=== PATIENT | male | born 1940 | race Caucasian/White ===

== ENCOUNTER 2017-12-12 08:22 | Emergency (ER) | payer OTHER ==
[~2017-12-12 08:22] MED LIST: AUD IH; FLUT1DIS5 IH; PRED20TA3 PO; TIOT18CA3 IH
[2017-12-12 09:02] LABS: BASOPHILS % (AUTO) 0.6 % (0.0-5.0); EOSINOPHILS % (AUTO) 2.8 % (0.0-8.0); HEMATOCRIT 38.1 % (42-54); LYMPHOCYTES % (AUTO) 16.9 % (21.0-51.0); MEAN CORPUSCULAR HEMOGLOBIN 31.4 pg (27.0-33.0); MEAN CORPUSCULAR VOLUME 92.3 fL (79-99); NEUTROPHILS % (AUTO) 71.7 % (40.0-77.0); PLATELET COUNT (AUTO) 262 K/uL (130-400); RED BLOOD CELL COUNT(AUTO) 4.12 MIL/uL (4.50-6.20); RED CELL DISTRIBUTION WIDTH 14.2 % (11.0-15.5); WHITE BLOOD COUNT (AUTO) 7.1 K/uL (4.8-10.8)
[2017-12-12 09:11] LABS: APPEARANCE,URINE Clear (CLEAR); BILIRUBIN,URINE Negative (NEGATIVE); COLOR,URINE Yellow (YELLOW); GLUCOSE, URINE (UA) Negative (NEGATIVE); KETONES,URINE Negative (NEGATIVE); LEUKOCYTE ESTERASE ,URINE Negative (NEGATIVE); NITRATE,URINE Negative (NEGATIVE); OCCULT BLOOD,URINE Negative (NEGATIVE); PH,URINE 5.5 (5.0-8.0); PROTEIN,URINE Negative (NEGATIVE); UROBILINOGEN,URINE 0.2 mg/dL (0.2-1.0)
[2017-12-12 09:24] LABS: POTASSIUM 4.8 mmol/L (3.5-5.1)
== END 2017-12-12 09:50 | disposition home or self-care (01) ==
LOC: EDH 08:22
DX: R33.9 Retention of urine, unspecified (principal); J44.9 Chronic obstructive pulmonary disease, unspecified; Z88.8 Allergy status to other drugs, medicaments and biological substances
CPT/HCPCS: 36415; 51702; 80048; 81003; 85025

== ENCOUNTER → 2018-01-25 | Outpatient (CLI) | payer OTHER | END | disposition home or self-care (01) | LOC: RAH 10:16 | PROVIDERS: ATTEND Internal Medicine | DX: J44.9 Chronic obstructive pulmonary disease, unspecified (principal); M47.895 Other spondylosis, thoracolumbar region | CPT/HCPCS: 71046 ==

== ENCOUNTER 2018-07-10 08:30 | Day surgery (SDC) | payer OTHER ==
[2018-07-10] VITALS (17 sets, daily range): BP systolic 85–108; BP diastolic 58–70
[~2018-07-10] VITALS: Ht 180.3 cm; Wt 78.0 kg
[~2018-07-10 08:30] MED LIST changes: +ASPI-555 PO; +CELE-84 PO; +LOSA25TA16 PO; +MOME13HF IH; +ROSU10TA27 PO; +SODIUM CHLORIDE 0.9% 1000ML 1,000 ML IV ONE; +TAMS0.4C32 PO
[2018-07-10] MEDS ORDERED: MEPERIDINE-PF 50 MG/ML SYG ONE (10:48)
[2018-07-10] MEDS ORDERED: MIDAZOLAM HCL 1 MG/ML 2ML VIAL ONE (10:49)
== END 2018-07-10 12:48 | disposition home or self-care (01) ==
LOC: ENDO 08:30 → DAH 08:30 → ENDO 12:48
PROVIDERS: ATTEND Internal Medicine Gastroenterology
DX: K63.5 Polyp of colon (principal); K57.30 Diverticulosis of large intestine without perforation or abscess without bleeding; K62.1 Rectal polyp; J44.9 Chronic obstructive pulmonary disease, unspecified; Z98.890 Other specified postprocedural states; Z79.899 Other long term (current) drug therapy; Z98.49 Cataract extraction status, unspecified eye; Z88.8 Allergy status to other drugs, medicaments and biological substances
CPT/HCPCS: 45380; 45385; 88305; A4606; J2175; J2250; J7030

== ENCOUNTER → 2021-04-14 | Outpatient (CLI) | payer OTHER ==
[~2021-04-14] MED LIST changes: -ASPI-555 PO; +ASPI-556 PO; -FLUT1DIS5 IH; -LOSA25TA16 PO; +LOSA25TA41 PO; -ROSU10TA27 PO; +ROSU10TA28 PO; -SODIUM CHLORIDE 0.9% 1000ML 1,000 ML IV ONE
== END | disposition home or self-care (01) ==
LOC: SHCH 09:25
PROVIDERS: ATTEND Internal Medicine Cardiovascular Disease
DX: I27.20 Pulmonary hypertension, unspecified (principal); J44.9 Chronic obstructive pulmonary disease, unspecified
CPT/HCPCS: 93306; 93356

== ENCOUNTER → 2021-12-31 | Outpatient (CLI) | payer OTHER ==
[~2021-12-31] MED LIST changes: +REGADENOSON 0.4 MG/5 ML PF SYG IVP SCH
== END | disposition home or self-care (01) ==
LOC: SHCH 08:16
PROVIDERS: ATTEND Internal Medicine Cardiovascular Disease
DX: I10 Essential (primary) hypertension (principal); R07.9 Chest pain, unspecified
CPT/HCPCS: 78452; 93017; 96374; A9500 ×2; J2785

== ENCOUNTER 2022-07-31 02:36 | Observation (INO) | payer OTHER ==
[~2022-07-31] VITALS: Ht 185.4 cm; Wt 52.7 kg
[~2022-07-31 02:36] MED LIST changes: -MOME13HF IH; +MOME13HF11 IH; -REGADENOSON 0.4 MG/5 ML PF SYG IVP SCH
[2022-07-31 03:44] LABS: BASOPHILS % (AUTO) 0.2 % (0.0-5.0); EOSINOPHILS % (AUTO) 0.1 % (0.0-8.0); LYMPHOCYTES % (AUTO) 4.5 % (21.0-51.0); MEAN CORPUSCULAR HEMOGLOBIN 30.5 pg (27.0-33.0); MEAN CORPUSCULAR HGB CONC 32.4 g/dL (32.0-36.0); MEAN CORPUSCULAR VOLUME 93.9 fL (79-99); MONOCYTES % (AUTO) 6.3 % (3.0-13.0); NEUTROPHILS % (AUTO) 88.5 % (40.0-77.0); PLATELET COUNT (AUTO) 193 K/uL (130-400); RED BLOOD CELL COUNT(AUTO) 3.94 MIL/uL (4.50-6.20); WHITE BLOOD COUNT (AUTO) 13.3 K/uL (4.8-10.8)
[2022-07-31 03:50] LABS: CREATININE 1.1 mg/dL (0.5-1.5); POTASSIUM 4.4 mmol/L (3.5-5.1)
[2022-07-31 03:55] LABS: ALBUMIN 2.5 g/dL (3.5-5.0); TOTAL PROTEIN, SERUM 7.2 g/dL (6.0-8.3)
[2022-07-31] MEDS ORDERED: AZITHROMYCIN 250 MG TABLET PO ONE (05:00)
[2022-07-31] MEDS ORDERED: CEFTRIAXONE 1G VIAL IVP ONE (05:00)
[2022-07-31] MEDS ORDERED: SOLU-MEDROL 125MG VIAL IVP ONE (05:00)
[2022-07-31 05:19] LABS: APPEARANCE,URINE CLEAR (CLEAR); BILIRUBIN,URINE NEGATIVE (NEGATIVE); COLOR,URINE YELLOW (YELLOW); GLUCOSE, URINE (UA) NEGATIVE (NEGATIVE); KETONES,URINE NEGATIVE (NEGATIVE); LEUKOCYTE ESTERASE ,URINE NEGATIVE Leu/uL (NEGATIVE); NITRATE,URINE NEGATIVE (NEGATIVE); OCCULT BLOOD,URINE NEGATIVE (NEGATIVE); PH,URINE 5.5 (5.0-8.0); PROTEIN,URINE 20 mg/dL (NEGATIVE); UROBILINOGEN,URINE 0.2 mg/dL (0.2-1.0)
[2022-07-31] MEDS ORDERED: TEMAZEPAM 15 MG CAPSULE PO PRN (05:30)
[2022-07-31] MEDS ORDERED: ALBUTEROL INHALER 90MCG/INH IH PRN ×2 (05:30→08:30)
[2022-07-31] MEDS ORDERED: LACTULOSE 20 GM/30 ML UDCUP PO PRN (05:30)
[2022-07-31] MEDS ORDERED: ACETAMINOPHEN 325 MG TAB PO PRN (05:30)
[2022-07-31] MEDS ORDERED: ONDANSETRON 4MG INJ IVP PRN (05:30)
[2022-07-31] MEDS ORDERED: CLONIDINE HCL 0.1 MG TABLET PO PRN (05:30)
[2022-07-31] MEDS ORDERED: HYDRALAZINE 20MG/ML VIAL IV PRN (05:30)
[2022-07-31 05:38] LABS: ABG BASE EXCESS -1.2 mmol/L (-2.0-3.0); ABG HCO3 22.7 mmol/L (21.0-28.0); ABG OXYGEN SATURATION 97.8 % (95.0-99.0); ABG PCO2 36 mmHg (35-48)
[2022-07-31] MEDS ORDERED: SOLU-MEDROL 125MG VIAL IVP SCH ×3 (08:30→11:45)
[2022-07-31] MEDS: PANTOPRAZOLE 40 MG TAB DR PO SCH (09:11)
[2022-07-31] MEDS: ENOXAPARIN SODIUM 40 MG/0.4 ML SYRINGE SQ SCH (09:14)
[2022-07-31] MEDS: SODIUM CHLORIDE 3% FOR INHALATION 4 ML/AMP VIAL.NEB IH SCH ×2 (10:04→21:00)
[2022-07-31] MEDS: IPRATROPIUM 0.5 MG/2.5 ML INH IH SCH ×4 (10:04→22:27)
[2022-07-31] MEDS ORDERED: ADV500 IH (16:30)
[2022-07-31 17:20] VITALS: BP 90/67
[2022-07-31 20:39] VITALS: BP 105/65
[2022-07-31] MEDS: SOLU-MEDROL 125MG VIAL IVP SCH (21:17)
[2022-07-31 23:25] VITALS: BP 103/60
[2022-08-01] MEDS: IPRATROPIUM 0.5 MG/2.5 ML INH IH SCH ×6 (02:19→22:40)
[2022-08-01] MEDS: SOLU-MEDROL 125MG VIAL IVP SCH ×2 (04:03→11:49)
[2022-08-01 04:33] VITALS: BP 109/69
[2022-08-01 05:23] LABS: HEMATOCRIT 33.8 % (42-54); MEAN CORPUSCULAR HEMOGLOBIN 30.9 pg (27.0-33.0); MEAN CORPUSCULAR HGB CONC 33.1 g/dL (32.0-36.0); MEAN CORPUSCULAR VOLUME 93.4 fL (79-99); RED BLOOD CELL COUNT(AUTO) 3.62 MIL/uL (4.50-6.20); RED CELL DISTRIBUTION WIDTH 13.5 % (11.0-15.5); WHITE BLOOD COUNT (AUTO) 7.7 K/uL (4.8-10.8)
[2022-08-01 05:33] LABS: CREATININE 0.9 mg/dL (0.5-1.5); MAGNESIUM 2.1 mg/dL (1.80-2.40); PHOSPHORUS 3.5 mg/dL (2.5-4.9); POTASSIUM 4.5 mmol/L (3.5-5.1)
[2022-08-01 06:03] LABS: % IRON SATURATION 30.1 % (30-44)
[2022-08-01 07:32] VITALS: BP 102/64
[2022-08-01] MEDS ORDERED: 0.9% NACL 250ML 250 ML ONE (08:39)
[2022-08-01] MEDS ORDERED: TAMS-1 PO (09:06)
[2022-08-01] MEDS: PANTOPRAZOLE 40 MG TAB DR PO SCH (09:07)
[2022-08-01] MEDS: ENOXAPARIN SODIUM 40 MG/0.4 ML SYRINGE SQ SCH (09:07)
[2022-08-01] MEDS: AZITHROMYCIN 500MG+NS 250ML IVPB SCH (09:07)
[2022-08-01] MEDS: SODIUM CHLORIDE 3% FOR INHALATION 4 ML/AMP VIAL.NEB IH SCH ×3 (10:42→19:26)
[2022-08-01 11:40] VITALS: BP 99/68
[2022-08-01 16:44] VITALS: BP 107/71
[2022-08-01 20:00] VITALS: BP_SYST 103; BP_SYST 113; BP_DIAS 51; BP_DIAS 69
[2022-08-02 00:53] VITALS: BP 116/72
[2022-08-02 04:21] VITALS: BP 120/79
[2022-08-02] MEDS: IPRATROPIUM 0.5 MG/2.5 ML INH IH SCH ×3 (06:37→14:29)
[2022-08-02] MEDS: SODIUM CHLORIDE 3% FOR INHALATION 4 ML/AMP VIAL.NEB IH SCH (06:38)
[2022-08-02 08:00] VITALS: BP 123/69
[2022-08-02] MEDS ORDERED: PREDNISONE 20 MG TABLET PO SCH (09:00)
[2022-08-02] MEDS: PANTOPRAZOLE 40 MG TAB DR PO SCH (09:30)
[2022-08-02] MEDS: AZITHROMYCIN 500MG+NS 250ML IVPB SCH (09:30)
[2022-08-02] MEDS: ENOXAPARIN SODIUM 40 MG/0.4 ML SYRINGE SQ SCH (09:31)
[2022-08-02 12:00] VITALS: BP 109/69
[2022-08-02] MEDS ORDERED: AZIT500T4 PO (13:21)
[2022-08-02] MEDS ORDERED: DEXA4 PO (13:21)
== END 2022-08-02 16:00 | disposition home or self-care (01) ==
LOC: EDH 02:36 → EDHIP 05:02 → 4AH 17:31
PROVIDERS: ADMIT Internal Medicine Critical Care Medicine; ATTEND Internal Medicine Critical Care Medicine
DX: U07.1 COVID-19 (principal); J96.21 Acute and chronic respiratory failure with hypoxia; J43.9 Emphysema, unspecified; J18.9 Pneumonia, unspecified organism; N40.0 Benign prostatic hyperplasia without lower urinary tract symptoms; E61.1 Iron deficiency; I25.10 Atherosclerotic heart disease of native coronary artery without angina pectoris; D72.829 Elevated white blood cell count, unspecified; R59.1 Generalized enlarged lymph nodes; J47.9 Bronchiectasis, uncomplicated; F32.9 Major depressive disorder, single episode, unspecified; R77.8 Other specified abnormalities of plasma proteins; Z99.81 Dependence on supplemental oxygen; Z79.899 Other long term (current) drug therapy; Z98.890 Other specified postprocedural states; Z79.82 Long term (current) use of aspirin
CPT/HCPCS: 96376 ×2; 96372 ×3; 96375; 99285; 83615; 84484; 80053; 82803; 83880; 85025; 85378; 87040 ×2; 87071; 87077; 87186; 87205; 87804 ×2; 83605 ×2; 87426; 81003; 36415 ×2; 87635; 71045; 71250; 93970; 93005; 36600; 94640 ×13; 94664; 94667; 94668 ×7; 84145; 96365; 96366 ×3; 83540; 83550; 83735; 84100; 80048; 82728; 85027; G0378 ×55; C9803; J2930 ×4; J0696; J1650 ×3; J0456 ×2; J7050